=== PATIENT | male | born 1950 | race Caucasian/White ===

== ENCOUNTER 2018-05-23 13:28 | Emergency (ER) | payer OTHER, MEDICARE ==
[~2018-05-23] VITALS: Ht 175.3 cm; Wt 90.7 kg
[~2018-05-23 13:28] MED LIST: ADVIL200 M2 PO; ANTIVERT 25 MG25 M1 PO; AZITHROMYCIN250 M1 PO; CIPRO 500MG (E500 MG PO; CIPRO500 M1 PO; CULTURELLE PO; DIVALPROEX SOD500 M3 PO; DOXYCYCLINE HY100 M4 PO; FISH OIL CONC1000 M1 PO; HYDROCODONE/ACE1 TA2 PO; MECLIZINE HCL25 MG PO; MEDROL DOSEPAK1 PAC PO; MEDROL4 M2 PO; MIRALAX119 GM PO; MULTIPLE VITAM1 EAC2 PO; NASONEX0.05 MG/Ac NAS; PHENASEPTIC177 ML BC; PREDNISONE10 MG PO; PROAIR HFA8.5 GM INH; PROBIOTIC1 EACH PO; ROBITUSSIN W/CO10 ML PO; SIMVASTATIN20 MG PO; TAMIFLU 75MG75 MG PO; TESSALON PERLE100 MG PO; TRANS SCOPE PAT1 PAT TOP; TRANSDERM-SCOP1 EAC1 AD; TRANSDERM-SCOP1 EACH TOP; TYLENOL EXTRA500 M2 PO; VALIUM 10 MG. T10 MG PO; VITAMIN C500 M3 PO; VITAMIN C500 M7 PO; ZOCOR20 M1 PO
--- NOTE | 2018-05-23 13:43 | ED GI/GU/ABDOMINAL COMPLAINT ---
History of Present Illness General Chief Complaint: Male Genitourinary Problems Stated Complaint: UTI, ON ABX FOR 4 DAYS, NOT ANY BETTER Source: patient Exam Limitations: no limitations Vital Signs & Intake/Output Vital Signs & Intake/Output Vital Signs Date Time Temp Pulse Resp B/P B/P Pulse O2 O2 Flow FiO2 Mean Ox Delivery Rate 05/23 1538 Room Air 05/23 1538 97.6 84 16 118/88 98 Room Air 05/23 1336 96.0 58 20 130/87 96 Room Air Allergies Coded Allergies: NO KNOWN ALLERGIES (12/15/12) Reconcile Medications Acetaminophen (Tylenol Extra Strength) 500 MG TABLET 2 TAB PO Q6 PRN HEADACHE (Reported) Albuterol Sulfate (Proair Hfa) 90 MCG HFA.AER.AD 2 PUF INH Q4-6 PRN PRN SHORTNESS OF BREATH (Reported) Ascorbic Acid (Vitamin C) 500 MG CAPSULE.ER 1 CAP PO DAILY VITAMIN SUPPORT ( Reported) Ciprofloxacin HCl (Cipro) 500 MG TABLET 500 MG PO BID URINE INFECTION Divalproex Sodium (Divalproex Sodium ER) 500 MG TAB.ER.24H 2 TAB PO QPM BIPOLAR (Reported) Ibuprofen (Advil) 200 MG TABLET 2 TAB PO BID PRN HEADACHE (Reported) Lactobacillus Acidophilus (Probiotic) 1 EACH CAPSULE 1 CAP PO TID GI health ( Reported) Multivitamin (Multiple Vitamins) 1 EACH TABLET 1 TAB PO DAILY VITAMIN SUPPORT (Reported) [place]-3 Fatty Acids (Fish Oil Concentrate) 1,000 MG CAPSULE 1 CAP PO DAILY SUPPLEMENT (Reported) Phenazopyridine HCl (Pyridium) 200 MG TABLET 1 TAB PO TID uti Polyethylene Glycol 3350 (Miralax) 17 GRAM/DOSE POWDER 17 GM PO DAILY NEEDED CONSTIPATION mix with water, juice, soda, coffee or tea Scopolamine (Transderm-Scop) 1 MG/3 DAY PATCH.TD.3 1 PATCH AD ONCE EVERY 3 DAYS VERTIGO Simvastatin (Zocor*) 20 MG TABLET 1 TAB PO DAILY CHOLESTEROL (Reported) Sulfamethoxazole/Trimethoprim (Bactrim Ds Tablet) 800 MG-160 MG TABLET 1 TAB PO BID uti Triage Note: PT TO ED FOR CONTINUED UTI S/S. PT IS CURRENTLY ON PO CIPRO FOR UTI. Triage Nurses Notes Reviewed? yes Onset: Abrupt Duration: day(s): (4), constant Timing: recent history Radiation: no radiation HPI: 68-year-old male comes into the emergency room for further evaluation of increased frequency and burning with urination. Some lower abdominal pressure. Patient has a history of frequent urinary tract infection since his 30s. He reports she's been on the ciprofloxacin for 4 days which usually helps. He still having persistent symptoms. Denies any fever chills vomiting or back pain. He comes in for further evaluation. Denies any urethral discharge. (Phil Rodriguez) Past History Travel History Traveled to [place] past 21 day No Medical History Any Pertinent Medical History? see below for history Neurological: HEADACHES EENT: benign positional vertigo, hearing loss Cardiovascular: HIGH CHOLESTEROL ENLARGED AORTA AORTIC ANEURSYM Respiratory: asthma Gastrointestinal: NONE Hepatic: NONE Renal: benign prost hyperplasia Musculoskeletal: L KNEE 05/27 Psychiatric: bipolar disease, depression, OCD Endocrine: NONE Blood Disorders: NONE Cancer(s): NONE INTERNAL CORROSION SPECIALIST/Reproductive: NONE History of MRSA: No History of VRE: No History of CDIFF: No Surgical History Surgical History: knee replacement, MULTIPLE KNEE SURGERIES RIGHT SHOULDER TURP Psychosocial History Who do you live with Other (see notes) Services at Home None What is your primary language Indonesian Tobacco Use: Never used ETOH Use: denies use Illicit Drug Use: denies illicit drug use Family History Hx Contributory? No (Phil Rodriguez) Review of Systems Review of Systems Constitutional: Reports: no symptoms. EENTM: Reports: no symptoms. Respiratory: Reports: no symptoms. Cardiovascular: Reports: no symptoms. GI: Reports: no symptoms. Genitourinary: Reports: see HPI. Musculoskeletal: Reports: no symptoms. Skin: Reports: no symptoms. Neurological/Psychological: Reports: no symptoms. Hematologic/Endocrine: Reports: no symptoms. Immunologic/Allergic: Reports: no symptoms. All Other Systems: Reviewed and Negative (Phil Rodriguez) Physical Exam Physical Exam General Appearance: well developed/nourished, alert, awake Head: atraumatic Eyes: Bilateral: normal appearance. Ears, Nose, Throat, Mouth: moist mucous membrane Neck: normal inspection Respiratory: no respiratory distress Gastrointestinal: soft Back: normal inspection Extremities: normal range of motion Neurologic/Psych: awake, alert Core Measures ACS in differential dx? No Sepsis Present: No Sepsis Focused Exam Completed? No (Phil Rodriguez) Progress Differential Diagnosis: ureterolithiasis, urinary retention, urethritis, UTI/ pyelo Plan of Care: Orders Procedure Date/time Status CULTURE,URINE 05/23 1339 Active CHLAMYDIA-GC DNA PROBE 05/23 1339 Active URINALYSIS 05/23 1339 Complete COMPREHENSIVE METABOLIC PANEL 05/23 1339 Complete CBC WITHOUT DIFFERENTIAL 05/23 1339 Complete Laboratory Tests 05/23/18 1428: Anion Gap 8, Estimated GFR > 60, BUN/Creatinine Ratio 15.0, Glucose 127 H, Calcium 9.6, Total Bilirubin 0.5, AST 37, ALT 41, Alkaline Phosphatase 49, Total Protein 6.8, Albumin 4.0, Globulin 2.8, Albumin/Globulin Ratio 1.4, CBC w Diff NO MAN DIFF REQ, RBC 5.07, MCV 92.3, MCH 31.2 H, MCHC 33.8, RDW 13.4, MPV 7.8, Gran % 50.2, Lymphocytes % 33.5, Monocytes % 13.7 H, Eosinophils % 2.5, Basophils % 0.1, Absolute Granulocytes 2.8, Absolute Lymphocytes 1.9, Absolute Monocytes 0.8 H, Absolute Eosinophils 0.1, Absolute Basophils 0 05/23/18 1400: Urinalysis LIGHT H, Urine Color YEL, Urine Clarity HAZY H, Urine pH 6.0, Ur Specific [place] >= 1.030, Urine Protein 30 H, Urine Ketones NEG, Urine Nitrite NEG, Urine Bilirubin NEG, Urine Urobilinogen 0.2, Ur Leukocyte Esterase TRACE H , Ur Microscopic SEDIMENT EXAMINED, Urine RBC 3-5, Urine WBC 50-75 H, Urine Bacteria RARE H, Urine Mucus MANY H, Urine Hemoglobin TRACE-INTACT H, Urine Glucose NEG Microbiology 05/23 1400 URINE ROUT: GC DNA Probe - RECD 05/23 1400 URINE ROUT: Chlamydia DNA Probe (PHYLLIS) - RECD 05/23 1400 URINE ROUT: Urine Culture - RECD Initial ED EKG: none Comments: 05/23/2018 4:47:31 PM Patient was started on Bactrim. Urine culture sent. Labs within normal limits. He clinically looks well. Is not toxic appearing. Walk around with no difficulty. In no apparent distress. Stable for discharge at this time. He was instructed to follow-up with his urologist. (Binh MORALES,Phil) Departure Departure Disposition: HOME OR SELF CARE Condition: Stable Clinical Impression Primary Impression: UTI (urinary tract infection) Referrals: [place] MD,Johan Beavers (PCP/Family) Additional Instructions: Discontinue taking ciprofloxacin. Take Bactrim as prescribed. Follow-up with urologist on Friday. Return if any concerns worsening symptoms. Please go over all results of today's visit with your primary care doctor. Contact your primary care doctor to let them know you were here in the emergency room. There may be nonspecific findings which may not be related to your visit today here in the emergency room but may require further evaluation and chronic monitoring by your primary care doctor. If you had a laceration today the chance of foreign body always remains. You should follow-up with your primary care doctor for recheck in 3-5 days for a wound check. If you had an x-ray done there is a chance that a fracture could have been missed on initial read and you should follow-up with your primary care doctor for repeat x-rays if symptoms persist. If your blood pressure was elevated here in the emergency room please have rechecked by [facility] primary care doctor within the next 48. If you were prescribed a narcotic here in the emergency room or any type of controlled substances you're not allowed to drive while taking this medication or operate any type of heavy machinery. Narcotics can make you feel lightheaded dizziness nausea and can cause constipation. You may need to pickler helper a stool softener. Thank you for choosing [facility] emergency room. Please return to the emergency room immediately if you have any other concerns worsening of symptoms. Departure Forms: Customer Survey General Discharge Information Prescriptions: Current Visit Scripts Sulfamethoxazole/Trimethoprim (Bactrim Ds Tablet) 1 TAB PO BID #20 TAB Phenazopyridine HCl (Pyridium) 1 TAB PO TID #9 TAB (Phil Rodriguez) PA/[employer] Co-Sign Statement Statement: ED Attending supervision documentation- [] I saw and evaluated the patient. I have also reviewed all the pertinent lab results and diagnostic results. I agree with the findings and the plan of care as documented in the PA's/[employer]'s documentation. [X] I have reviewed the ED Record and agree with the PA's/[employer]'s documentation. [] Additions or exceptions (if any) to the PAs/[employer]OR[employer]'s note and plan are summarized below: [] (Priyank POSADA,Don Villarreal)
[2018-05-23 14:40] LABS: ABSOLUTE BASOPHIL COUNT 0 /CUMM (0.0-0.2); ABSOLUTE EOSINOPHIL COUNT 0.1 /CUMM (0.0-0.7); ABSOLUTE GRANULOCYTE CT 2.8 /CUMM (1.4-6.5); ABSOLUTE LYMPH COUNT 1.9 /CUMM (1.2-3.4); ABSOLUTE MONOCYTE COUNT 0.8 /CUMM (0.10-0.60); BASOPHIL % 0.1 % (0.0-2.0); EOSINOPHIL % 2.5 % (0-5); GRANULOCYTE % 50.2 % (42.2-75.2); HEMATOCRIT 46.8 % (42-52); MEAN CORPUSCULAR HGB 31.2 PG (27.0-31.0); MEAN CORPUSCULAR HGB CONC 33.8 G/DL (33.0-37.0); MEAN CORPUSCULAR VOLUME 92.3 FL (80.0-94.0); MEAN PLATELET VOLUME 7.8 FL (7.4-10.4); PLATELET COUNT 168 /CUMM (130-400); RBC DISTRIBUTION WIDTH 13.4 % (11.5-14.5); RED BLOOD CELL CT 5.07 /CUMM (4.70-6.10); WHITE BLOOD CELL COUNT 5.6 /CUMM (4.8-10.8)
[2018-05-23] MEDS ORDERED: PYRIDIUM200 M1 PO (15:24)
[2018-05-23] MEDS ORDERED: BACTRIM DS TAB1 EACH PO (15:24)
[2018-05-23 15:38] VITALS: BP 118/88
== END 2018-05-23 15:39 ==
LOC: ERH 13:28
PROVIDERS: Physician Assistant Medical
DX: N39.0 Urinary tract infection, site not specified (principal)
CPT/HCPCS: 81001; 87086; 87491; 87591